=== PATIENT | male | born 1970 | race Asian ===

== ENCOUNTER 2017-10-30 18:53 | Emergency (ER) | payer BC, OTHER ==
[~2017-10-30] VITALS: Ht 167.6 cm; Wt 76.7 kg
[2017-10-30 18:59] VITALS: Ht 167.6 cm; Wt 76.7 kg
[2017-10-30] MEDS ORDERED: KETOROLAC 30 MG INJ IV STA (20:08)
[2017-10-30] MEDS ORDERED: SOD CHLORIDE 0.9% 1,000 ML IV STA (20:08)
[2017-10-30 20:52] LABS: BASOPHIL # 0.1 10^3/ul (0.0-0.1); BASOPHILS % 0.7 % (0.0-2.0); EOSINOPHILS # 0.1 10^3/ul (0.0-0.5); EOSINOPHILS % 1.3 % (0.0-7.0); HEMATOCRIT 53.1 % (42.0-52.0); HEMOGLOBIN 18.8 g/dl (14.0-18.0); LYMPHOCYTES # 2.5 10^3/ul (0.8-2.9); LYMPHOCYTES % 36.7 % (15.0-51.0); MEAN CORPUSCULAR HEMOGLOBIN 29.3 pg (29.0-33.0); MEAN CORPUSCULAR HGB CONC 35.4 g/dl (32.0-37.0); MEAN CORPUSCULAR VOLUME 82.8 fl (82.0-101.0); MEAN PLATELET VOLUME 10.3 fl (7.4-10.4); MONOCYTE # 0.7 10^3/ul (0.3-0.9); MONOCYTES % 10.8 % (0.0-11.0); NEUTROPHIL # 3.4 10^3/ul (1.6-7.5); NEUTROPHILS % 50.1 % (39.0-77.0); PLATELET COUNT 186 10^3/UL (140-415); RED BLOOD COUNT 6.41 10^6/ul (4.70-6.10); RED CELL DISTRIBUTION WIDTH 12.8 % (11.5-14.5); WHITE BLOOD COUNT 6.8 10^3/ul (4.8-10.8)
[2017-10-30 21:08] LABS: ADD UMIC YES; UR ASCORBIC ACID NEGATIVE (NEGATIVE); UR BILIRUBIN (Dip) NEGATIVE (NEGATIVE); UR BLOOD (Dip) 2+ mg/dL (NEGATIVE); UR CLARITY CLEAR (CLEAR); UR COLOR YELLOW (YELLOW); UR GLUCOSE (Dip) NEGATIVE (NEGATIVE); UR KETONES (Dip) NEGATIVE (NEGATIVE); UR LEUKOCYTE ESTERASE (Dip) NEGATIVE Leu/ul (NEGATIVE); UR NITRITE (Dip) NEGATIVE (NEGATIVE); UR RBC 10 /HPF (0-5); UR SPECIFIC GRAVITY (Dip) 1.017 (1.003-1.030); UR TOTAL PROTEIN (Dip) NEGATIVE (NEGATIVE); UR UROBILINOGEN (Dip) NEGATIVE (NEGATIVE)
[2017-10-30 21:10] LABS: ALBUMIN 4.6 g/dl (3.3-4.9); ALBUMIN/GLOBULIN RATIO 1.39; BILIRUBIN,INDIRECT 0.4 mg/dl (0-1.1); BILIRUBIN,TOTAL 0.4 mg/dl (0.2-1.3); CALCIUM 9.3 mg/dl (8.4-10.2); CREATININE 0.97 mg/dl (0.61-1.24); POTASSIUM 3.7 mmol/L (3.5-5.1); TOTAL PROTEIN 7.9 g/dl (6.1-8.1)
--- NOTE | 2017-10-30 21:47 | RADRPT ---
PROCEDURE: CT abdomen and pelvis without contrast. CLINICAL INDICATION: Abdominal pain. TECHNIQUE: CT of the abdomen and pelvis was performed without contrast. Coronal and sagittal reform atted images were obtained from the axial source images. Images were reviewed on a high-resolution [employer] workstation. The total exam CTDI equals 7.04 mGy and the total exam DLP equals 444.14 mGy-cm. DI COM images are available. Evaluation is partially limited due to motion artifact. One or more of the following dose reduction techniques were used: - Automated exposure control. - Adjustment of the mA and/or kV according to patient size. - Use of iterative reconstruction technique. COMPARISON: None available. FINDINGS: Visualized lower thorax: The visualized lung bases are clear. There are coronary artery calcificati ons. The visualized heart is otherwise unremarkable. Hepatobiliary system and spleen: The liver is grossly unremarkable. There is no intra or extrahepat ic biliary ductal dilatation. The gallbladder surgically absent. The spleen is at the upper limits o f normal in size measuring 13.8 cm in length, but otherwise grossly unremarkable. The pancreas is gr ossly unremarkable. Adrenal glands and genitourinary system: The adrenal glands are grossly unremarkable. There is no n ephrolithiasis or hydronephrosis. The urinary bladder is grossly unremarkable. The prostate gland an d seminal vesicles are grossly unremarkable. Gastrointestinal system: There is no bowel wall thickening or evidence of obstruction. The appendix is in the right lower quadrant and is unremarkable. Peritoneum, vascular, and lymphatics: There is no free intraperitoneal air or free fluid. There is no mesenteric or retroperitoneal adenopathy. There are atherosclerotic changes of the aorta, which i s nonaneurysmal. Musculoskeletal system and soft tissues: There is mild multilevel degenerative enthesopathy. There are no concerning osseous lesions. The soft tissues are unremarkable. IMPRESSION: 1. No acute abnormality or findings to suggest a source of the patient's symptoms. 2. Borderline splenomegaly. 3. Coronary artery calcifications and atherosclerotic changes of the aorta. RPTAT: [facility] .Deo Wilburn MD, MD Date Time Electronically viewed and signed by .Deo Wilburn MD, MD on 10/30/2017 21:47 .P/
[2017-10-30] MEDS ORDERED: ACET500C5 PO (22:18)
[2017-10-30 23:07] VITALS: BP 143/99; PULSE 95; RESP 16; TEMP 98.5
--- NOTE | 2017-10-31 04:36 | ERD ---
ER Documentation Chief Complaint Chief Complaint abdominal pain x 3 months HPI 47-year-old male patient with no significant past medical history presents to the ED complaining of a gradual onset of intermittent abdominal pain for the past 3 months. Reports that it is predominantly in the right and left parts of his abdomen. Describes the pain as sharp and rates it a 6 out of 10. Denies any chest pain, shortness of breath, nausea, vomiting, diarrhea, constipation, melena, hemoptysis. Denies any dysuria, scrotal pain, urgency, frequency. ROS All systems reviewed and are negative except as per history of present illness. Medications Home Meds Active Scripts Acetaminophen* (Tylophen*) 500 Mg Capsule, 1 CAP PO Q6H Y for PAIN AND OR ELEVATED TEMP, #20 CAP Prov:BRIANDA FREEDMAN PA-C 10/30/17 Allergies Allergies: Coded Allergies: No Known Drug Allergies (Verified Allergy, Unknown, 10/30/17) PMhx/Soc Medical and Surgical Hx: pt denies Medical Hx, pt denies Surgical Hx Hx Alcohol Use: No Hx Substance Use: No Hx Tobacco Use: No Smoking Status: Never smoker Physical Exam Vitals Vital Signs Date Time Temp Pulse Resp B/P Pulse Ox O2 Delivery O2 Flow Rate FiO2 10/30/17 23:07 98.5 95 16 143/99 99 Room Air 10/30/17 18:59 98.9 120 20 140/86 97 Physical Exam Const: [id number], well-nourished. In no acute distress. Head: Atraumatic, normocephalic Eyes: Normal Conjunctiva without injection. No purulent discharge. ENT: Normal external ear, nose. Moist oropharynx without tonsillar exudates. Non -erythematous pharynx. Uvula midline. No drooling. No trismus. Neck: No cervical midline tenderness. Full range of motion. No meningismus. No cervical lymphadenopathy. No JVD. Resp: Clear to auscultation bilaterally. No wheezing, rhonchi, rales, or crackles. No accessory muscle use. No retractions. Cardio: Regular rate and rhythm. No murmurs, rubs or gallops. Abd: Soft, left lower quadrant tenderness, non distended. Normal bowel sounds. No palpable masses. No rebound tenderness. No guarding. Negative McBurney's point. Negative psoas sign. Negative obturator sign. Skin: No petechiae or rashes Back: No midline tenderness. No CVA tenderness. Ext: No cyanosis, or edema. Neur: Awake and alert. Normal gait. Normal coordination. Psych: Normal Mood and Affect Results 24 hrs Laboratory Tests Test 10/30/17 20:20 White Blood Count 6.810^3/ul Red Blood Count 6.4110^6/ul Hemoglobin 18.8g/dl Hematocrit 53.1% Mean Corpuscular Volume 82.8fl Mean Corpuscular Hemoglobin 29.3pg Mean Corpuscular Hemoglobin Concent 35.4g/dl Red Cell Distribution Width 12.8% Platelet Count 42146^3/UL Mean Platelet Volume 10.3fl Neutrophils % 50.1% Lymphocytes % 36.7% Monocytes % 10.8% Eosinophils % 1.3% Basophils % 0.7% Nucleated Red Blood Cells % 0.0/100WBC Neutrophils # 3.410^3/ul Lymphocytes # 2.510^3/ul Monocytes # 0.710^3/ul Eosinophils # 0.110^3/ul Basophils # 0.110^3/ul Nucleated Red Blood Cells # 0.010^3/ul Urine Color YELLOW Urine Clarity CLEAR Urine pH 6.0 Urine Specific [place] 1.017 Urine Ketones NEGATIVEmg/dL Urine Nitrite NEGATIVEmg/dL Urine Bilirubin NEGATIVEmg/dL Urine Urobilinogen NEGATIVEmg/dL Urine Leukocyte Esterase NEGATIVELeu/ul Urine Microscopic RBC 10/HPF Urine Microscopic WBC 1/HPF Urine Hemoglobin 2+mg/dL Urine Glucose NEGATIVEmg/dL Urine Total Protein NEGATIVEmg/dl Sodium Level 142mmol/L Potassium Level 3.7mmol/L Chloride Level 105mmol/L Carbon Dioxide Level 23mmol/L Anion Gap 18 Blood Urea Nitrogen 15mg/dl Creatinine 0.97mg/dl Glucose Level 96mg/dl Calcium Level 9.3mg/dl Total Bilirubin 0.4mg/dl Direct Bilirubin 0.00mg/dl Indirect Bilirubin 0.4mg/dl Aspartate Amino Transf (AST/SGOT) 29IU/L Alanine Aminotransferase (ALT/SGPT) 48IU/L Alkaline Phosphatase 112IU/L Total Protein 7.9g/dl Albumin 4.6g/dl Globulin 3.30g/dl Albumin/Globulin Ratio 1.39 Lipase 87U/L Current Medications Medications (Trade) Dose Ordered Sig/Carlos Route PRN Reason Start Time Stop Time Status Last Admin Dose Admin Sodium Chloride (NS) 1,000 ml @ 1,000 mls/hr Q1H STAT IV 10/30/17 20:08 10/30/17 21:20 DC 10/30/17 20:29 Ketorolac Tromethamine (Toradol) 30 mg ONCE STAT IV 10/30/17 20:08 10/30/17 20:09 DC 10/30/17 20:29 Procedures/MDM This is a 47-year-old male patient with no significant past medical history presents to the ED complaining of abdominal pain that started 3 months ago. Patient is afebrile nontoxic appearing. Patient has normal vital signs. Patient was further worked up with CBC, CMP, lipase, UA, T of the abdomen and pelvis with no contrast. Patient's pain and symptoms have improved after treatment with Toradol 30 mg IV. CBC: No leukocytosis. No e/o of systemic infection. No e/o anemia. CMP: No e/o severe acidosis, alkalosis, renal failure, diabetic ketoacidosis, liver disease Lipase within normal limits. Urine: No leukocyte esterase, no nitrites, no hematuria. PROCEDURE: CT abdomen and pelvis without contrast. CLINICAL INDICATION: Abdominal pain. TECHNIQUE: CT of the abdomen and pelvis was performed without contrast. Coronal and sagittal reformatted images were obtained from the axial source images. Images were reviewed on a high-resolution PACS workstation. The total exam CTDI equals 7.04 mGy and the total exam DLP equals 444.14 mGy-cm. DICOM images are available. Evaluation is partially limited due to motion artifact. One or more of the following dose reduction techniques were used: - Automated exposure control. - Adjustment of the mA and/or kV according to patient size. - Use of iterative reconstruction technique. COMPARISON: None available. FINDINGS: Visualized lower thorax: The visualized lung bases are clear. There are coronary artery calcifications. The visualized heart is otherwise unremarkable. Hepatobiliary system and spleen: The liver is grossly unremarkable. There is no intra or extrahepatic biliary ductal dilatation. The gallbladder surgically absent. The spleen is at the upper limits of normal in size measuring 13.8 cm in length, but otherwise grossly unremarkable. The pancreas is grossly unremarkable. Adrenal glands and genitourinary system: The adrenal glands are grossly unremarkable. There is no nephrolithiasis or hydronephrosis. The urinary bladder is grossly unremarkable. The prostate gland and seminal vesicles are grossly unremarkable. Gastrointestinal system: There is no bowel wall thickening or evidence of obstruction. The appendix is in the right lower quadrant and is unremarkable. Peritoneum, vascular, and lymphatics: There is no free intraperitoneal air or free fluid. There is no mesenteric or retroperitoneal adenopathy. There are atherosclerotic changes of the aorta, which is nonaneurysmal. Musculoskeletal system and soft tissues: There is mild multilevel degenerative enthesopathy. There are no concerning osseous lesions. The soft tissues are unremarkable. IMPRESSION: 1. No acute abnormality or findings to suggest a source of the patient's symptoms. 2. Borderline splenomegaly. 3. Coronary artery calcifications and atherosclerotic changes of the aorta. Patient likely has coronary artery changes of the aorta likely chronic and is instructed to follow-up with his primary care physician to obtain a referral to a radiation oncologist. Patient also has a borderline splenomegaly. Platelets within normal limits. Low suspicion for testicular torsion, gastritis, GERD, peptic ulcer disease, cholecystitis, choledocholithiasis, cholangitis, pancreatitis, appendicitis, bowel obstruction, ileus, volvulus, nephrolithiasis, pyelonephritis, hepatitis, perforated viscus, diverticulitis, abdominal hernia, acute abdomen, mesenteric ischemia or other emergent conditions. This was discussed with my supervising physician, Dr. Mata who agreed with the management and discharge plan. Discharge medications: Tylenol Follow up with primary care physician in 1-2 days for referral to director of neighborhood service center and radiation oncologist for further evaluation and treatment. Instructed patient to return to the ED sooner for any worsening symptoms. Patient's questions were answered. Patient understood and agreed with discharge plan. Patient discharged stable. Departure Diagnosis: Primary Impression: Abdominal pain Abdominal location: unspecified location Qualified Code: R10.9 - Abdominal pain, unspecified abdominal location Condition: Stable Patient Instructions: Abdominal Pain, Understanding Coronary Artery Disease ( CAD) Referrals: [facility] YOU HAVE RECEIVED A MEDICAL SCREENING EXAM AND THE RESULTS INDICATE THAT YOU DO NOT HAVE A CONDITION THAT REQUIRES URGENT TREATMENT IN THE EMERGENCY DEPARTMENT. FURTHER EVALUATION AND TREATMENT OF YOUR CONDITION CAN WAIT UNTIL YOU ARE SEEN IN YOUR DOCTORS OFFICE WITHIN THE NEXT 1-2 DAYS. IT IS YOUR RESPONSIBILITY TO MAKE AN APPOINTMENT FOR FOLOW-UP CARE. IF YOU HAVE A PRIMARY DOCTOR --you should call your primary doctor and schedule an appointment IF YOU DO NOT HAVE A PRIMARY DOCTOR YOU CAN CALL OUR PHYSICIAN REFERRAL HOTLINE AT IF YOU CAN NOT AFFORD TO SEE A PHYSICIAN YOU CAN CHOSE FROM THE FOLLOWING [facility] [address] [facility] [address] [facility] [address] [facility] [address] [facility] [address] [facility]. [facility] [address] [facility]. [facility] YOU HAVE RECEIVED A MEDICAL SCREENING EXAM AND THE RESULTS INDICATE THAT YOU DO NOT HAVE A CONDITION THAT REQUIRES URGENT TREATMENT IN THE EMERGENCY DEPARTMENT. FURTHER EVALUATION AND TREATMENT OF YOUR CONDITION CAN WAIT UNTIL YOU ARE SEEN IN YOUR DOCTORS OFFICE WITHIN THE NEXT 1-2 DAYS. IT IS YOUR RESPONSIBILITY TO MAKE AN APPOINTMENT FOR FOLOW-UP CARE. IF YOU HAVE A PRIMARY DOCTOR --you should call your primary doctor and schedule and appointment IF YOU DO NOT HAVE A PRIMARY DOCTOR YOU CAN CALL OUR PHYSICIAN REFERRAL HOTLINE AT . IF YOU CAN NOT AFFORD TO SEE A PHYSICIAN YOU CAN CHOSE FROM THE FOLLOWING [facility]: [facility] [address] [place] [address] [facility] [address] [place] [address] [facility] [address] [place] [address] [facility] URGENT CARE/SPECIALTIES Additional Instructions: FOLLOW UP WITH YOUR PRIMARY CARE PHYSICIAN in 2 days for a referral to see a radiation oncologist and director of neighborhood service center.Return to this facility if you are not improving as expected - chest pain, shortness of breath, fever, chills, nausea, vomiting, worsening abdominal/back pain, etc. Do not play any contact sports or injure abdomen. BRIANDA FREEDMAN PA-C Oct 31, 2017 04:36 BRIANDA FREEDMAN PA-C Oct 31, 2017 04:36
== END 2017-10-30 23:08 | disposition home or self-care (01) ==
LOC: FTE 18:53
DX: R10.32 Left lower quadrant pain (principal)
CPT/HCPCS: 74176; 80053; 81001; 83690; 85025; J1885; J7030; 36415; 96374